=== PATIENT | female | born 1965 | race African-American/Black ===

== ENCOUNTER 2016-12-07 06:57 | Inpatient (IN) | payer BC, MEDICARE ==
[2016-12-05 10:37] LABS: BASOPHILS 0.4 %; BASOPHILS ABSOLUTE 0.02 10/3/uL (0.0-0.16); EOSINOPHILS 4.8 %; EOSINOPHILS ABSOLUTE 0.25 10/3/uL (0.0-0.53); HEMATOCRIT 39.2 % (36.0-48.0); IMMATURE GRANULOCYTES 0.6 %; IMMATURE GRANULOCYTES ABSOLUTE 0.03 10/3/uL (0.0-0.11); LYMPHOCYTES 37.3 %; LYMPHOCYTES ABSOLUTE 1.93 10/3/uL (0.67-4.30); MEAN CORPUS HGB CONC 33.2 g/dL (32.0-36.0); MEAN CORPUSCULAR HEMOGLOB 30.9 pg (26.0-34.0); MEAN CORPUSCULAR VOLUME 93.1 fL (80-100); MEAN PLATELET VOLUME 9.7 fL (9.2-13.0); MONOCYTES 7.2 %; MONOCYTES ABSOLUTE 0.37 10/3/uL (0.21-1.20); NEUTROPHILS 49.7 %; NEUTROPHILS ABSOLUTE 2.57 10/3/uL (2.02-8.40); PLATELET COUNT 272 10/3/uL (150-400); RBC DISTRIBUTION WIDTH 13.2 % (12.0-16.0); RED CELL COUNT 4.21 10/6/uL (4.0-5.6); WHITE BLOOD CELLS 5.2 10/3/uL (4.5-10.5)
[2016-12-05 10:38] LABS: MANUAL DIFF NO %
[2016-12-05 10:44] LABS: INTERNATIONAL NORMAL RATI 1.1 UNITS (-); PARTIAL THROMBO TIME 25.8 SEC (22.5-37.2); PROTIME (NOT ORD) 13.6 SEC (12.0-14.5)
[2016-12-05 10:54] LABS: A/G RATIO 0.8 (0.7-1.9); ALBUMIN 3.6 G/DL (3.5-5.0); ALKALINE PHOSPHATASE 64 U/L (45-117); BUN (BLOOD UREA NITROGEN) 14 MG/DL (6-23); CHLORIDE, SERUM 109 MMOL/L (96-112); CO2 (CARBON DIOXIDE) 28 MMOL/L (24-34); CREATININE 0.91 MG/DL (0.55-1.02); GFR AFRICAN AMERICAN 84 ML/MIN (>=60); GFR NON AFRICAN AMERICAN 73 ML/MIN (>=60); GLOBULIN 4.3 G/DL (2.5-4.1); POTASSIUM, SERUM 3.8 MMOL/L (3.5-5.3); SGOT(AST) 14 U/L (5-40); SGPT(ALT) 19 U/L (5-65); SODIUM, SERUM 139 MMOL/L (135-148); TOTAL BILIRUBIN 0.5 MG/DL (0-1.2); TOTAL PROTEIN 7.9 G/DL (6.0-8.5)
[2016-12-05 10:55] LABS: GLUCOSE, SERUM 125 MG/DL (60-99)
[2016-12-05 12:15] LABS: ASCORBIC ACID (UR NOT ORDER) NEG (NEG); BILIRUBIN, URINE NEGATIVE (NEG); KETONE, URINE NEGATIVE (NEG); LEUKOCYTE ESTERASE(NOT OR MOD (NEG); WBC (NOT ORDERED) (RFLEX) 65 (0-5)
--- NOTE | ~2016-12-07 | OP ---
Record Of Operation [facility] [address] [place]. [address] NAME: NORTH EDWARD : 63 STATUS : ADM IN PAT#: [id number] AGE: 51 ADM/REG DATE : 12/07/16 MR#: [id number] REPORT SERV DATE: 12/07/16 DICTATED BY: ROCKY MENDOZA III DATE: 12/07/16 REPORT STATUS : Draft TRANSCRIBED BY: MODL DATE: 12/07/16 DATE OF PROCEDURE: 12/07/2016 PREOPERATIVE DIAGNOSIS: Advanced osteoarthritis, right knee. POSTOPERATIVE DIAGNOSIS: Advanced osteoarthritis, right knee. SURGICAL PROCEDURE PERFORMED: Right total knee arthroplasty using the DePuy system with a size 6 femoral component, size 6 tibial tray, a +6 polyethylene insert with a 41 mm patella, posterior stabilized design (the Attune System by [employer]). SURGEON: Rocky Mendoza M.D. MANAGER STAR: Marisol Jimenez. ANESTHESIA: General. ANTIBIOTICS: Ancef 2 g. COMPLICATIONS: None. TOURNIQUET TIME: 45 minutes. CRYSTALLOID: 1000 mL. ESTIMATED BLOOD LOSS: 75 mL. DRAINS: None. TRANEXAMIC ACID: 2 g. PROCEDURE IN DETAIL: The patient was brought to the operative room, placed on the table in supine position, and general anesthesia was induced. 2 g of Ancef was administered intravenously in the operating room. Pneumatic tourniquet was applied to the right upper thigh, and the right lower extremity was prepped and draped in the usual sterile fashion. It was exsanguinated with a 6-inch Esmarch, and the tourniquet was inflated to 350 mmHg. Assuring good anesthesia and after a called timeout by the health support specialist, a midline incision was made directly over the right knee followed by a medial arthrotomy. The patella was everted. The knee was flexed to 90 degrees. Medial and lateral menisci were debrided along with the anterior cruciate ligament. A 5 mm step drill was used to enter the femoral canal, and the intramedullary guide was placed on 5 degrees valgus for right knee. This was pinned to the distal femur and the intramedullary guide was removed. Distal femoral cut was made with the oscillating saw removing 9 mm of distal femur. Distal femur was trialed to a size 6 femoral component, marked along the epicondylar axis. Multi-cutting guide was placed in these ervin, pinned to the distal femur, and the anterior and posterior cuts were made along the angled chamfer cuts. The intercondylar cutting guide was next centered and pinned to Record Of Operation [address] [address] NAME: NORTH EDWARD : 63 STATUS : ADM IN PAT#: [id number] AGE: 51 ADM/REG DATE : 12/07/16 MR#: [id number] REPORT SERV DATE: 12/07/16 DICTATED BY: ROCKY MENDOZA III DATE: 12/07/16 REPORT STATUS : Draft TRANSCRIBED BY: MODL DATE: 12/07/16 the distal femur. A reciprocating saw was used to make this cut for the posterior stabilized system. Trial reduction was carried out noting good cuts in all planes. Attention was turned towards the tibial side. The external tibial cutting guide was aligned with the second metatarsal ray and pinned to the proximal tibia. An oscillating saw was used to make this cut with a neutral-degree cutting block. Trial reduction was carried out with size a 6 tibial baseplate and a +6 polyethylene insert. Full extension was achieved, nice flexion to 130 degrees. Flexion and extension gaps were symmetrical. The undersurface of the patella was then resurfaced by transecting 9 to 10 mm of bone. A 38 mm patellar template was used to place 3 anchor holes in the undersurface of the patella. The tibia was then prepared with a drill and a punch. Two packs of methylmethacrylate were vacuum mixed, pressurized in the good dry cancellous bone. The real components were placed. Excess cement was removed. Tourniquet was released after 45 minutes. Bleeding was controlled with Bovie electrocautery. Thorough irrigation was carried out throughout the procedure with pulse lavage system. No drains were used. The medial arthrotomy was closed with #2 Ethibond suture and #1 Vicryl suture in 90-degree flexed position. Subcutaneous tissue was closed with 2-0 Vicryl and the skin was closed using running 4-0 Monocryl. Benzoin and Steri-Strips were applied followed by an Aquacel dressing. Patient tolerated the procedure well and brought to the recovery room in satisfactory condition. There were no intraoperative, postoperative, or anesthetic complications. All instruments, needle, sponge, and lap counts were correct. TB/JASS Rocky Mendoza III, M.D. / [id number] CC: Rocky Mendoza III, M.D.
--- NOTE | ~2016-12-07 | HP ---
History And Physical [place] [id number] [facility] [place]. [address] NAME: NORTH EDWARD : 63 STATUS : ADM IN PAT#: [id number] AGE: 51 ADM/REG DATE : 12/07/16 MR#: [id number] REPORT SERV DATE: 12/07/16 DICTATED BY: ROCKY ARCHER III DATE: 12/07/16 REPORT STATUS : Draft TRANSCRIBED BY: MODL DATE: 12/07/16 DATE OF ADMISSION: 12/07/2016 CHIEF COMPLAINT: Right knee pain. HISTORY: The patient is a 51-year-old black female, who complains of pain in her right knee and has so for several years. It has gotten progressively worse to the point where she is having difficulty ambulating short distances. Complained of rest pain and night pain, all unrelieved with nonsteroidal antiinflammatory medicines. She has a history of osteoarthritis of her knees and has undergone a left total knee arthroplasty on 01/23/2007 by myself with a nice result. X-rays at this time reveal advanced osteoarthritis of her right knee, and she is admitted for a right total knee arthroplasty. Risks, benefits, and expected outcomes have been explained, but not limited to blood clots, infection, neurovascular injuries, patella maltracking problems, and component failures. PAST MEDICAL HISTORY: Negative for high blood pressure, diabetes, liver, lung, or kidney problems. PREVIOUS SURGERIES: Include a left total knee arthroplasty, left knee arthroscopy on 11/07/1990, a second surgery on her left knee on 07/29/1994 for arthroscopy, and a rotator cuff repair done on her left shoulder on 02/25/2016. ALLERGIES: PENICILLIN. MEDICATIONS: None. SOCIAL HISTORY: Nonsmoker. Nondrinker. PHYSICAL EXAMINATION: GENERAL: She is alert and oriented x3. VITAL SIGNS: Stable. HEENT: Normocephalic atraumatic. Pupils are equal, round, and reactive to light and accommodation. Extraocular muscles are intact. NECK: Supple. CHEST: Clear. HEART: Regular rate rhythm without murmur. ABDOMEN: Benign. Soft, nontender. Positive bowel sounds. ORTHOPEDIC: Examination reveals a valgus alignment of her right knee of about 8 to 10 degrees range of motion, recurvatum of about 10 degrees to limited flexion of 120. Tenderness to the patellofemoral joint. Tenderness to the medial femoral condyle and the lateral femoral condyle. Some crepitation through range of motion. IMAGING: X-ray of the right knee reveals osteoarthritis of her right knee. PLAN: Admission for right total knee arthroplasty. History And Physical [address] [place]. [id number] NAME: NORTH EDWARD : 63 STATUS : ADM IN [facility]#: [id number] AGE: 51 ADM/REG DATE : 12/07/16 MR#: [id number] REPORT SERV DATE: 12/07/16 DICTATED BY: ROCKY ARCHER III DATE: 12/07/16 REPORT STATUS : Draft TRANSCRIBED BY: JASS DATE: 12/07/16 TB/JASS Rocky Archer III, M.D. / [id number] CC: Rocky Archer III, M.D.
[~2016-12-07 06:57] MED LIST: *DENIES; ALEVE220 MG PO; PHENTERMINE37.5 MG PO
[2016-12-08 05:55] LABS: HEMOGLOBIN 10.7 g/dL (12.0-16.0)
[2016-12-08 05:57] LABS: HEMATOCRIT 32.5 % (36.0-48.0)
[2016-12-09 05:18] LABS: HEMATOCRIT 29.9 % (36.0-48.0); HEMOGLOBIN 10.2 g/dL (12.0-16.0)
[2016-12-09] MEDS ORDERED: PERCOCET 10/3251 TAB PO (12:57)
[2016-12-09] MEDS ORDERED: ELIQUIS 2.5 MG2.5 MG PO (12:57)
[2016-12-09] MEDS ORDERED: PR25 PO (12:58)
== END 2016-12-09 17:54 | disposition home or self-care (01) | DRG 470 ==
LOC: SDC/OF 06:57 → PACU 11:40 → 3SO 12:32
PROVIDERS: Orthopaedic Surgery
PROC: 0SRC0J9 Replacement of Right Knee Joint with Synthetic Substitute, Cemented, Open Approach (ICD-10-PCS; principal; 2016-12-07 08:45)
DX: M17.11 Unilateral primary osteoarthritis, right knee (principal)
CPT/HCPCS: 36415; 71020; 80053; 81001; 85014; 85018; 85025; 85610; 85730; 86850; 86900; 86901; 87086; 87641; 88305; 88311; 93005; 97110-GP; 97116-GP; 97161-GP; 97166-GO; A9270-GY; C1776; J0690; J1170; J1885; J2250; J2270; J2405; J2550; J2710; J2795; J3010